=== PATIENT | female | born 1975 | race Caucasian/White ===

== ENCOUNTER 2020-11-22 16:17 | Emergency (ER) | payer BC ==
[~2020-11-22] VITALS: Ht 157.5 cm; Wt 83.9 kg
[2020-11-22] MEDS ORDERED: ZIAC 5-6.25 MG1 EACH PO (16:30)
[2020-11-22] MEDS ORDERED: BENAZEPRIL HCL20 MG PO (16:31)
[2020-11-22] MEDS ORDERED: METFORMIN HCL500 M3 PO (16:32)
[2020-11-22] MEDS ORDERED: ZANAFLEX4 M1 PO (16:32)
[2020-11-22] MEDS ORDERED: CLONAZEPAM 0.50.5 M1 PO ×2 (16:32→16:33)
[2020-11-22] MEDS ORDERED: NORTRIPTYLINE H50 M3 PO (16:32)
[2020-11-22] MEDS ORDERED: SERTRALINE HCL25 M1 PO (16:33)
[2020-11-22] MEDS ORDERED: KEFLEX500 M1 PO (17:25)
[2020-11-22] MEDS ORDERED: NORCO5 PO (17:25)
[2020-11-22] MEDS ORDERED: BACTRIM DS TAB1 EACH PO (17:25)
[2020-11-22 17:38] VITALS: BP 129/80
== END 2020-11-22 17:38 | disposition home or self-care (01) ==
LOC: M.ERS 16:17
DX: L03.032 Cellulitis of left toe (principal); I10 Essential (primary) hypertension; M19.90 Unspecified osteoarthritis, unspecified site; Z90.711 Acquired absence of uterus with remaining cervical stump; Z79.899 Other long term (current) drug therapy